=== PATIENT | female | born 1980 | race Two or more races ===

== ENCOUNTER 2017-03-17 13:41 | Emergency (ER) | payer MEDICAID ==
[~2017-03-17] VITALS: Ht 162.6 cm; Wt 81.6 kg
[2017-03-17] MEDS ORDERED: ZYPREXA5 MG ORAL (14:55)
[2017-03-17] MEDS ORDERED: XANAX1 MG ORAL (14:55)
[2017-03-17 15:14] VITALS: BP 118/80
[2017-03-17 15:26] VITALS: BP 118/80
--- NOTE | 2017-03-17 21:17 | Emergency Room Report ---
History of Present Illness General Chief Complaint: Behavioral Complaint Source: Patient Present Illness HPI The patient is a 36-year-old female with a stated history of PTSD and schizophrenia presenting for medication refill. The patient states that she was last seen by psychiatrist while in patient for a 10 day stay at a psychiatric facility. She is given a prescription for Zyprexa and Xanax but states these have run out and she is now beginning to feel anxious again. The patient denies any other symptoms including SI, HI, hallucinations, CP, SOB, SMITH , dizziness, rash, insomnia Patient History Past Medical History: see triage record Pertinent Family History: none Last Menstrual Period: last month Now: No Reviewed Nursing Documentation: PMH: Agreed, PSxH: Agreed Nursing Documentation-PMH Past Medical History: No History, Except For History Of Psychiatric Problem: Yes - PTSD, schizophrenia Review of Systems All Other Systems: negative except mentioned in HPI Physical Exam Vital Signs Date Time Temp Pulse Resp B/P Pulse Ox O2 Delivery O2 Flow Rate FiO2 03/17/17 13:53 98.6 116 20 122/86 98 Room Air Sp02 EP Interpretation: reviewed, normal General Appearance: no apparent distress, alert, GCS 15, non-toxic Head: normocephalic, atraumatic Eyes: bilateral eye PERRL, bilateral eye normal inspection ENT: hearing grossly normal, normal pharynx, no angioedema, normal voice Neck: full range of motion, supple/symm/no masses Respiratory: chest non-tender, lungs clear, normal breath sounds, speaking full sentences Cardiovascular #1: regular rate, rhythm, no edema Neurologic: alert, oriented x3, responsive, motor strength/tone normal, sensory intact, normal gait, speech normal Psychiatric: no suicidal/homicidal ideation, no delusions, anxious Skin: normal color, no rash, warm/dry, well hydrated Lymphatic: no adenopathy Medical Decision Making PA Attestation Dr. De Jesus is my supervising physician. Patient management was discussed with my supervising physician Diagnostic Impression: Primary Impression: PTSD (post-traumatic stress disorder) Additional Impression: Schizophrenia Qualified Codes: F20.9 - Schizophrenia, unspecified ER Course The patient is a 36-year-old female with a stated history of PTSD and schizophrenia presenting for medication refill Differential diagnoses considered but not limited to suicidal ideation, homicidal ideation, depression, anxiety, drug seeking behavior PE: Pt appears mildly anxious. A&Ox4 PERRL. EOMI. Normal mentation. RRR. No MRG Lungs CTA bilat Abdomen: Normal appearance. Non distended. No ecchymosis. Normal BS. Non TTP. No McBurney point tenderness. No guarding. Skin is warm and dry, no rashes. The patient is given a limited refill of medications and is given information for [facility] facility. She states that she will go tomorrow. ER precautions given Last Vital Signs Date Time Temp Pulse Resp B/P Pulse Ox O2 Delivery O2 Flow Rate FiO2 03/17/17 15:26 98.1 102 18 118/80 99 Room Air Status: improved Disposition: HOME, SELF-CARE Condition: Improved Scripts Alprazolam* (XANAX*) 1 Mg Tablet 1 TAB ORAL THREE TIMES A DAY, #15 TAB 0 Refills Prov: YANE TAPIA.AOsiel 03/17/17 Olanzapine* (ZYPREXA*) 5 Mg Tablet 5 MG ORAL DAILY, #14 TAB Prov: YANE TAPIAAOsiel 03/17/17 Referrals: NOT CHOSEN [facility]/MD,REFERRING (PCP) Patient Instructions: Depression, Adult, Stress and Stress Management Additional Instructions: I discussed my findings with the patient. All questions and concerns have been answered. Treatment and medication compliance have been addressed. I advised the patient that they need to follow up with PMD in 3-5 days. Return to ED if symptoms worsen, new symptoms arise, or if needed for any reason. Patient verbalized understanding of discharge instructions. The patient will follow up with psychiatry as soon as possible. Information given for [facility] urgent care YANE TAPIA March 17, 2017 21:17
== END 2017-03-17 15:26 | disposition home or self-care (01) ==
LOC: EMR 14:51
DX: F43.10 Post-traumatic stress disorder, unspecified (principal); X58.XXXA Exposure to other specified factors, initial encounter; Y93.9 Activity, unspecified; Y99.9 Unspecified external cause status; F20.9 Schizophrenia, unspecified; F41.9 Anxiety disorder, unspecified
CPT/HCPCS: 99284

== ENCOUNTER 2017-04-22 20:30 | Emergency (ER) | payer MEDICAID ==
[~2017-04-22] VITALS: Ht 162.6 cm; Wt 83.9 kg
[~2017-04-22 20:30] MED LIST: XANAX1 MG ORAL; ZYPREXA5 MG ORAL
[2017-04-22] MEDS ORDERED: GABAPENTIN300 MG ORAL ×2 (20:52→21:28)
[2017-04-22] MEDS ORDERED: NORCO 10-325 T1 EACH ORAL (20:52)
[2017-04-22 21:00] VITALS: BP 105/76
[2017-04-22] MEDS ORDERED: HYDROCODON-ACE1 EA16 ORAL (21:28)
[2017-04-22] MEDS ORDERED: MEDROL4 M1 PO (21:28)
--- NOTE | 2017-04-22 21:29 | Emergency Room Report ---
History of Present Illness General Chief Complaint: Back Pain-No Injury Source: Patient Present Illness HPI This is a 36-year-old female with history of spinal stenosis with herniated disc. This was diagnosed on MRI. She was seen a pain specialist getting injection. Because of her insurance changed, she no longer able to see that doctor. She's been out of her medics in for about a month. Now with increasing pain to the lower back. Spreading upwards and also with numbness to the lateral aspect of the right leg. This has happened before. No nausea no vomiting. No incontinence of bowel or urine. Pain is 10 out of 10. Worse with movement. No trauma. No fever. Allergies: Coded Allergies: ARIPIPRAZOLE (Verified Allergy, Unknown, 04/22/17) CEFACLOR (Verified Allergy, Unknown, 04/22/17) ERYTHROMYCIN BASE (Verified Allergy, Unknown, 04/22/17) Patient History Past Medical History: see triage record, old chart reviewed Past Surgical History: other Pertinent Family History: none Social History: Denies: drug use Last Menstrual Period: 3 weeks ago Now: No Immunizations: other Reviewed Nursing Documentation: PMH: Agreed, PSxH: Agreed Nursing Documentation-PMH Hx Neurological Problems: Yes - SPINAL STENOSIS Review of Systems Eye: Denies: blurred vision, eye pain ENT: Denies: ear pain, nose congestion, throat swelling Respiratory: Denies: cough, shortness of breath Cardiovascular: Denies: chest pain, palpitations Gastrointestinal: Denies: abdominal pain, diarrhea, nausea, vomiting Musculoskeletal: Reports: back pain, Denies: joint pain Skin: Denies: rash Neurological: Denies: headache, numbness Endocrine: Denies: increased thirst, increased urine Hematologic/Lymphatic: Denies: easy bruising All Other Systems: negative except mentioned in HPI Physical Exam Vital Signs Date Time Temp Pulse Resp B/P Pulse Ox O2 Delivery O2 Flow Rate FiO2 04/22/17 20:39 98.4 80 16 105/76 96 Room Air vitals normal Sp02 EP Interpretation: reviewed, normal General Appearance: well appearing, no apparent distress, alert Head: normocephalic, atraumatic Eyes: bilateral eye EOMI, bilateral eye PERRL ENT: hearing grossly normal, normal pharynx Neck: full range of motion, supple, no meningismus Respiratory: chest non-tender, lungs clear, normal breath sounds Cardiovascular #1: regular rate, rhythm, no murmur Gastrointestinal: normal bowel sounds, non tender, no mass, no organomegaly, no bruit, non-distended Musculoskeletal: back normal, gait/station normal, normal range of motion, other - Tenderness to paraspinous muscle on right side of lower back. No midline tenderness. No step-off. No anesthesia. Neurologic: alert, oriented x3 Psychiatric: mood/affect normal Skin: warm/dry Medical Decision Making Diagnostic Impression: Primary Impression: Back pain Qualified Codes: M54.41 - Lumbago with sciatica, right side ER Course Patient presents with exacerbation of chronic back pain. She will need to see a new pain specialist. Told patient to call her new primary care for referral. No evidence of cauda equina syndrome, spinal epidural abscess or neoplastic process. There is no trauma. We'll discharge home. Last Vital Signs Date Time Temp Pulse Resp B/P Pulse Ox O2 Delivery O2 Flow Rate FiO2 04/22/17 21:00 98.4 16 105/76 96 Room Air 04/22/17 20:39 80 Status: improved Disposition: HOME, SELF-CARE Condition: Stable Scripts Methylprednisolone (MEDROL) 4 Mg Tab.ds.pk 4 MG PO DAILY, #1 PACK Prov: HOMERO REDDY M.D. 04/22/17 Gabapentin* (GABAPENTIN*) 300 Mg Capsule 300 MG ORAL BID, #60 CAP 0 Refills Prov: HOMERO REDDY M.D. 04/22/17 Hydrocodone/Acetaminophen 7.5-325* (HYDROCODON-ACETAMINOPH 7.5-325*) 1 Each Tablet 1 TAB ORAL Q6H Y for For Pain, #30 TAB 0 Refills Prov: HOMERO REDDY M.D. 04/22/17 Referrals: [facility]REFERRED [facility],REFERRING (PCP) Patient Instructions: Back Pain, Adult Additional Instructions: Followup with your new doctor within 7 days. You would need a referral to see a new pain specialist. Return if symptom worsen. HOMERO REDDY M.D. Apr 22, 2017 21:29
[2017-04-22] MEDS ORDERED: HYDROmorphone 1mg/ml Carpuject IM ONE (21:30)
[2017-04-22 21:35] VITALS: BP 105/76
== END 2017-04-22 21:35 | disposition home or self-care (01) ==
LOC: EMR 20:58
DX: M54.5 Low back pain (principal); Z88.1 Allergy status to other antibiotic agents; M48.00 Spinal stenosis, site unspecified
CPT/HCPCS: 96372; 99284; J1170